=== PATIENT | male | born 1945 | race Hispanic/Latino ===

== ENCOUNTER 2021-05-02 09:07 | Emergency (ER) | payer OTHER ==
[~2021-05-02] VITALS: Ht 172.7 cm; Wt 81.6 kg
[2021-05-02 10:02] LABS: BASOPHILS # (AUTO) 0.1 (0.0-0.1); BASOPHILS % 1.4 % (0.0-1.0); EOSINOPHILS # (AUTO) 0.2 (0.0-0.4); EOSINOPHILS % 3.2 % (0.0-6.0); HEMATOCRIT 43.9 % (38.2-49.6); MEAN CORPUSCULAR HEMOGLOBIN 30.5 pg (28-32); MEAN CORPUSCULAR HGB CONC 34.2 g/dL (31-35); MEAN CORPUSCULAR VOLUME 89.4 fL (81-99); MONOCYTES # (AUTO) 0.4 (0.2-0.8); MONOCYTES % 7.2 % (4.4-11.3); PLATELET COUNT 247 x10e3/uL (140-360); RED BLOOD COUNT 4.91 x10e6/uL (4.3-5.7); RED CELL DISTRIBUTION WIDTH 12.6 % (11.7-14.4)
[2021-05-02 10:16] LABS: ALBUMIN 3.8 g/dL (3.5-5.0); ANION GAP 14.6 mmol/L (8-16); CALCIUM 8.5 mg/dL (8.4-10.2); CREATININE, SERUM 1.02 mg/dL (0.72-1.25); POTASSIUM 3.6 mmol/L (3.5-5.1)
[2021-05-02 10:23] LABS: CREATINE KINASE MB 1.3 ng/mL (0-5.0)
== END 2021-05-02 12:01 | disposition home or self-care (01) ==
LOC: ER 09:24
DX: R07.89 Other chest pain (principal); I10 Essential (primary) hypertension; E78.5 Hyperlipidemia, unspecified
CPT/HCPCS: 36415; 71045; 80053; 82550; 82553; 84484; 85025; 93005; 99284